=== PATIENT | male | born 1995 | race Hispanic/Latino ===

== ENCOUNTER 2019-02-07 01:10 | Emergency (ER) | payer OTHER ==
[2019-02-07 01:46] VITALS: BP 139/86; PULSE 56; RESP 16; TEMP 97.8; O2SAT 99
[2019-02-07] MEDS ORDERED: Lidocaine Hydrochloride 1% 10 ML ONE (02:00)
--- NOTE | 2019-02-07 02:09 | ED PDOC ---
HPI: Wound Care - HPI Time Seen by Provider: 02/07/19 01:45 Chief Complaint (Nursing): Finger,Hand,&Wrist Chief Complaint (Provider): laceration History Per: Patient History Of Present Illness: 23 y/o male presents for evaluation of laceration to left hand 2nd digit sustained at 20:30 tonight. Patient states his finger got caught in vegetable slicer. Denies numbness/weakness left upper extremity, limitation of movement. Tetanus up to date Past Medical History Reviewed: Historical Data, Nursing Documentation, Vital Signs Vital Signs: Last Vital Signs Temp 97.8 F 02/07/19 01:42 Pulse 56 L 02/07/19 01:42 Resp 16 02/07/19 01:42 BP 139/86 02/07/19 01:42 Pulse Ox 99 02/07/19 01:42 - Medical History PMH: No Chronic Diseases - Surgical History Surgical History: No Surg Hx - Family History Family History: States: No Known Family Hx - Allergies Allergies/Adverse Reactions: Allergies Allergy/AdvReac Type Severity Reaction Status Date / Time Penicillins Allergy URTICARIA Verified 02/07/19 01:46 Review of Systems ROS Statement: Except As Marked, All Systems Reviewed And Found Negative Musculoskeletal: Positive for: Hand Pain (left hand 2nd digit laceration) Physical Exam - Reviewed Nursing Documentation Reviewed: Yes Vital Signs Reviewed: Yes - Physical Exam Appears: Positive for: Well, Non-toxic, No Acute Distress Pulses-Radial (L): 2+ Pulses-Radial (R): 2+ Extremity: Positive for: Normal ROM, Other (1.5cm "C" shape laceration distal palmar aspect left hand 2nd digit. Wound edges approximate) Neurological/Psych: Positive for: Awake, Alert, Oriented (x3) - ECG O2 Sat by Pulse Oximetry: 99 Procedure: Wound Repair - Time Performed Time Performed: 02:45 - Time Out Time Out: Side verified, Site verified, Patient ID confirmed, Sterile procedures obs. - Consent Obtained Consent obtained: Verbal - Performed by Performed by: Mid-level Provider - Location Finger:: Left, Index Shape:: Curvilinear Dimensions Length cm: 1.0cm Dimensions width cm: 0.2cm Depth:: Epidermis - Anesthetic Technique Local/Regional Anesthetic:: Lidocaine 1% - Complexity Complexity:: Simple (one layer) - Wound repair method Sutures:: # (4), Size (5'0), Type (prolene), Technique (interrupted) - Muscle repiar layer closed with Muscle repair layer closed with:: Abx ointment applied, Dressing applied (finger splint applied), Tetanus up to date - Patient tolerated procedure Patient Tolerated Procedure:: Well Medical Decision Making Medical Decision Making: Patient educated on wound care, advised suture removal in 7-8 days Return precautions given Disposition - Clinical Impression Clinical Impression: Finger laceration - Patient ED Disposition Is Patient to be Admitted: No Counseled Patient/Family Regarding: Diagnosis, Need For Followup - Disposition Disposition: Routine/Home Disposition Time: 03:02 Condition: STABLE Additional Instructions: Suture removal 7-8 days Instructions: Laceration Repair Forms: [facility] ([facility])
== END 2019-02-07 03:30 | disposition home or self-care (01) ==
LOC: H.ER 01:10
DX: S61.211A Laceration without foreign body of left index finger without damage to nail, initial encounter (principal); W26.8XXA Contact with other sharp object(s), not elsewhere classified, initial encounter; Y92.89 Other specified places as the place of occurrence of the external cause